=== PATIENT | male | born 1990 | race Caucasian/White ===

== ENCOUNTER → 2020-02-05 11:24 | Outpatient (BNVA) | payer SELFPAY | PROVIDERS: Visit Provider Nurse Practitioner Family | DX: L30.9 Dermatitis, unspecified (principal) | CPT/HCPCS: 80053; 85025; 85651; 86140 ==

== ENCOUNTER 2022-04-29 11:21 | Emergency (ER) | payer SELFPAY ==
[2022-04-29 11:43] VITALS: BP 142/94; PULSE 59; RESP 16; TEMP 36.6; O2SAT 99; BMI 27.4
--- NOTE | 2022-04-29 12:08 | ED_ITS ---
HPI - General Adult General: Chief complaint: General Medical Stated complaint: Heat exposure, dizziness, numbness Time Seen by Provider: 04/29/22 12:07 History of Present Illness: Patient is a 31-year-old male comes to the ED with nausea and vomiting. Patient was working outside in the heat on Wednesday and Wednesday and sweating a lot. At the end of the day Wednesday he started feeling n auseous and dizzy when he was up and moving around. Yesterday he felt really dizzy when ambulating and was nauseous and having some episodes of vomiting. He feels like he is dehydrated. Yesterday evening he was able to keep some food and fluids down but this morning he still felt weak and dizzy when he got up. Associated symptoms: Reports nausea and vomiting; Deny chest pain, dyspnea, headache(s), rash or palpitations Review of Systems Const: Denies: fever(s), chills or fatigue Eyes: Denies: change in vision or eye discomfort ENMT: Denies: throat pain, odynophagia, nasal discharge or nasal congestion Card: Denies: chest pain, palpitations, edema, swelling of feet/ankles, dyspnea on exertion or orthopnea Resp: Denies: dyspnea, productive cough or non-productive cough GI: Reports: nausea and vomiting; Denies: abdominal pain, diarrhea, constipation or hematochezia : Denies: flank pain, difficulty urinating, dysuria or hematuria Musc: Denies: neck pain, back pain or extremity swelling Skin/Breast: Denies: rash or new lesions Neuro: Reports: dizziness; Denies: headache(s), numbness in extremities or weakness in extremities [facility] ED PFSH: Medical History (Updated 04/30/22 @ 08:58 by BOB Booker) No pertinent family history Surgical History (Updated 04/30/22 @ 08:58 by BOB Booker) Status post club foot correction at Family History Grandmother Cancer Social History Smoking and tobacco status: current every day smoker (THC) Second hand smoke exposure: No Alcohol intake: current Alcohol intake frequency: holidays/special occasions only Marital status: History of recent travel: No Physical Exam Const: COMMON NORMALS: patient oriented x3 and alert GENERAL APPEARANCE: cooperative HENMT: COMMON NORMALS: normocephalic HEAD & SCALP: normocephalic MOUTH: moist mucous membranes abnormal Details: parched THROAT: posterior oropharynx normal and uvula midline Neck/C-Spine: COMMON NORMALS: supple GENERAL: Yes normal visual inspection Resp: COMMON NORMALS: normal respiratory effort, No retractions, No use of accessory muscles and clear to auscultation bilaterally AUSCULTATION: clear to auscultation bilaterally Cardio: COMMON NORMALS: regular rate, regular rhythm, S1 normal heart sound present, S2 normal heart sound present, No gallops present (Cardio), No clicks present (Cardio), No murmurs present (Cardio) and Peripheral pulses 2+ throughout RATE: regular rate RHYTHM: regular rhythm HEART SOUNDS: S1 normal heart sound present and S2 normal heart sound present PERIPHERAL PULSES: Peripheral pulses 2+ throughout GI: COMMON NORMALS: Normal to inspection, nondistended, normoactive bowel sounds present, Soft to palpation, non-tender and no masses PALPATION: Yes Soft to palpation : COMMON NORMALS: Yes no CVA tenderness BLADDER/KIDNEY EXAM: Yes no CVA tenderness Back/Pelvis: COMMON NORMALS: no CVA tenderness Extremity: COMMON NORMALS: normal to inspection Neuro: COMMON NORMALS: patient oriented x3 and moves all extremities SENSORIUM/ORIENTATION: Yes alert Skin: GENERAL SKIN EXAM: dry skin Course Vital Signs: Vital signs: Vital Signs Temperature 97.9 F 04/29/22 11:43 Pulse Rate 59 L 04/29/22 11:43 Respiratory Rate 16 04/29/22 11:43 Blood Pressure 142/94 04/29/22 11:43 Pulse Oximetry 99 04/29/22 11:43 [facility] - General Adult Medical Decision Making Patient is a 31-year-old male who comes to the ED with nausea vomiting dizziness secondary to heat exhaustion. Patient worked last 2 days outside and was sweating a bunch and not taking in enough water. Denies any abdominal pain. Exam of patient is benign. Labs are unremarkable. Patient was given 1.5 L of normal saline and Zofran and meclizine and his symptoms improved. He was diagnosed with heat exhaustion and was discharged home home with a prescription for some meclizine as needed for any recurrent dizziness. Return to ED precautions given. Follow-up with PCP in the next week for reevaluation. Patient understood and agreed with plan. Lab Data I reviewed the patient's lab results. : 04/29/22 12:10 04/29/22 12:10 Laboratory Results WBC 5.1 10^3/uL (4.0-10.0) 04/29/22 12:10 RBC 5.48 10^6/uL (4.1-5.3) H 04/29/22 12:10 Hgb 17.2 g/dL (11.7-16.6) H 04/29/22 12:10 Hct 49.7 % (42.0-52.0) 04/29/22 12:10 MCV 90.7 fl (80-94) 04/29/22 12:10 MCH 31.4 pg (28.0-34.0) 04/29/22 12:10 MCHC 34.6 g/dL (30.0-36.0) 04/29/22 12:10 RDW 14.0 % (12.1-15.1) 04/29/22 12:10 Plt Count 187 10^3/cmm (130-400) 04/29/22 12:10 MPV 9.0 fL (7.4-10.4) 04/29/22 12:10 Neut % (Auto) 72.2 % 04/29/22 12:10 Lymph % (Auto) 17.1 % 04/29/22 12:10 Wetzel % (Auto) 9.5 % 04/29/22 12:10 Eos % (Auto) 0.4 % 04/29/22 12:10 Baso % (Auto) 0.4 % 04/29/22 12:10 Neut # (Auto) 3.71 10^3/uL (1.8-7.7) 04/29/22 12:10 Lymph # (Auto) 0.9 10^3/uL (0.8-4.8) 04/29/22 12:10 Wetzel # (Auto) 0.5 10^3/uL (0.2-0.9) 04/29/22 12:10 Eos # (Auto) 0.0 10^3/uL (0.0-0.8) 04/29/22 12:10 Baso # (Auto) 0.0 10^3/uL (0.0-0.1) 04/29/22 12:10 Nucleated RBC % (auto) 0 % 04/29/22 12:10 Nucleated RBCs # 0.0 /100WBC 04/29/22 12:10 Sodium 135 mmol/L (136-145) L 04/29/22 12:10 Potassium 3.7 mmol/L (3.5-5.1) 04/29/22 12:10 Chloride 98 mmol/L (98-107) 04/29/22 12:10 Carbon Dioxide 24 mmol/L (22-29) 04/29/22 12:10 Anion Gap 16.7 (5-19) 04/29/22 12:10 BUN 4 mg/dL (6-20) L 04/29/22 12:10 Creatinine 0.8 mg/dL (0.7-1.2) 04/29/22 12:10 GFR Calculation 112.0 mL/min (90-130) 04/29/22 12:10 Glucose 179 mg/dL (65-115) H 04/29/22 12:10 Calculated Osmolality 281 mOsm/kg (285-295) L 04/29/22 12:10 Calcium 9.8 mg/dL (8.5-10.5) 04/29/22 12:10 Total Bilirubin 1.9 mg/dL (0.15-1.2) H 04/29/22 12:10 AST 44 U/L (0-40) H 04/29/22 12:10 ALT 49 U/L (0-41) H 04/29/22 12:10 Alkaline Phosphatase 73 IU/L (40-130) 04/29/22 12:10 Total Protein 6.6 g/dL (6.6-8.7) 04/29/22 12:10 Albumin 4.4 g/dL (3.5-5.2) 04/29/22 12:10 Globulin 2.2 g/dL (1.3-4.6) 04/29/22 12:10 Lipase 31 U/L (13-60) 04/29/22 12:10 Urine Color Yellow (Yellow) 04/29/22 12:00 Urine Appearance Clear (CLEAR) 04/29/22 12:00 Urine pH 6.5 (5-7) 04/29/22 12:00 Ur Specific [place] 1.010 (1.005-1.030) 04/29/22 12:00 Urine Protein Neg (Negative) 04/29/22 12:00 Urine Glucose (UA) Norm (Normal) 04/29/22 12:00 Urine Ketones 1+ (Negative) H 04/29/22 12:00 Urine Blood Neg (Negative) 04/29/22 12:00 Urine Nitrate Negative (Negative) 04/29/22 12:00 Urine Bilirubin Neg (Negative) 04/29/22 12:00 Urine Urobilinogen Norm mg/dL (Negative) 04/29/22 12:00 Ur Leukocyte Esterase Negative (Negative) 04/29/22 12:00 Discharge Plan Discharge Patient Disposition: Home Clinical Impression: Heat exhaustion Qualifiers: Encounter type: initial encounter Qualified Code(s): T67.5XXA - Heat exhaustion, unspecified, initial encounter Condition: Stable Prescriptions: New meclizine 25 mg tablet 50 mg PO DAILY PRN (Reason: dizziness) Qty: 20 0RF Discharge Orders: Discharge ED (Routine); Ordered 04/29/22 Ordered By: Sen Falcon Discharge Diet: Regular Discharge Activity: Increase activity as tolerated Patient Instructions: Heat Exhaustion (ED) Activity Restrictions/Additional Instructions: Follow-up with medical provider as directed in the next 7 to 10 days for reevaluation. Make sure drink plenty of fluids and stay hydrated. Take medications as prescribed. Return to the ER or your medical provider if condition worsens. Please read and understand discharge instructions. Thank you for choosing [facility] for your healthcare needs today. Please realize this is an emergency room and that we are providing you with a medical screening exam and this may not be complete and all inclusive of all the testing and or work up that you may need to determine your ailment or severity of your illness. It is very important that you follow up as instructed or that you return to the Emergency Department should you have concerns or if your condition changes or worsens in any way. Coding Level of Care Code ED Still Operator Helper for Delfino Aviles Exam Comprehensive
[2022-04-29 12:11] LABS: Add Urine Microscopic? NO; Charge for UA Resulting for Rev
[2022-04-29 12:23] LABS: Urine Appearance Clear (CLEAR); Urine Color Yellow (Yellow)
[2022-04-29 12:24] LABS: Bilirubin Urine Neg (Negative); Blood Urine Neg (Negative); Glucose Urine UA Norm (Normal); Ketones Urine 1+ (Negative); Leukocyte Esterase Urine Negative (Negative); Nitrate Urine Negative (Negative); Protein Urine Neg (Negative); Urobilinogen Urine Norm (Negative); pH Urine 6.5 (5-7)
[2022-04-29 12:24] LABS: Basophils % 0.4 %; Eosinophils % 0.4 %; Hematocrit 49.7 % (42.0-52.0); Hemoglobin 17.2 g/dL (11.7-16.6); Lymphocytes # 0.9 10^3/uL (0.8-4.8); Lymphocytes % 17.1 %; Mean Corpuscular HGB Conc 34.6 g/dL (30.0-36.0); Mean Corpuscular Hemoglobin 31.4 pg (28.0-34.0); Mean Corpuscular Volume 90.7 fl (80-94); Monocytes # 0.5 10^3/uL (0.2-0.9); Monocytes % 9.5 %; Neutrophils # 3.71 10^3/uL (1.8-7.7); Neutrophils % 72.2 %; Nucleated Red Blood Cells % 0 %; Platelet Count 187 10^3/cmm (130-400); Red Blood Count 5.48 10^6/uL (4.1-5.3); White Blood Count 5.1 10^3/uL (4.0-10.0)
[2022-04-29] MEDS: ondansetron 2 mg/ML SDV 2 mL 4 MG IVP (12:30)
[2022-04-29] MEDS: sodium chloride 0.9% 1,000 ML 999 ML IV (12:30)
[2022-04-29 12:59] LABS: Alanine Aminotransferase 49 U/L (0-41); Albumin Level 4.4 g/dL (3.5-5.2); Alkaline Phosphatase 73 IU/L (40-130); Aspartate Amino Transferase 44 U/L (0-40); Blood Urea Nitrogen 4 mg/dL (6-20); Calcium 9.8 mg/dL (8.5-10.5); Carbon Dioxide 24 mmol/L (22-29); Chloride 98 mmol/L (98-107); Creatinine Clr Calc Pharmacy 129.6083; Globulin 2.2 g/dL (1.3-4.6); Glucose 179 mg/dL (65-115); Lipase 31 U/L (13-60); Osmolality Calculated 281 mOsm/kg (285-295); Sodium 135 mmol/L (136-145); Total Bilirubin 1.9 mg/dL (0.15-1.2); Total Protein 6.6 g/dL (6.6-8.7)
[2022-04-29 13:01] LABS: Anion Gap 16.7 (5-19); Potassium 3.7 mmol/L (3.5-5.1)
[2022-04-29] MEDS: meclizine 25 mg tablet 50 MG PO (13:38)
[2022-04-29] MEDS: sodium chloride 0.9% 500 ML 999 ML IV (13:38)
== END 2022-04-29 14:13 | disposition home or self-care (01) ==
PROVIDERS: Emergency Medicine; Emergency Provider Physician Assistant
DX: T67.5XXA Heat exhaustion, unspecified, initial encounter (principal); X30.XXXA Exposure to excessive natural heat, initial encounter
CPT/HCPCS: 80053; 81003; 83690; 85025; 96361; 96374; 99284; J2405; J7030; J7040; J8597